=== PATIENT | female | born 1950 | race Two or more races ===

== ENCOUNTER 2018-01-25 01:16 | Emergency (ER) | payer MEDICARE, MEDICAID ==
[~2018-01-25] VITALS: Ht 162.6 cm; Wt 81.6 kg
[2018-01-25 01:23] VITALS: BP 132/80
[2018-01-25] MEDS ORDERED: Pantoprazole Inj IV ONE (01:45)
--- NOTE | 2018-01-25 02:07 | Emergency Room Report ---
History of Present Illness General Chief Complaint: Abdominal Pain Source: Patient, Family Member Present Illness HPI Is a 67-year-old female presents with abdominal pain. Onset tonight. she had multiple episode and pain. She had a syncopal episode hitting her head in the bathroom during vomiting. Her daughter she was diagnosed with gastritis and his been ongoing for several months now. This is the fourth ER visit. Last 3 times she went to [facility]. She had last ER visit 2 weeks ago. A week ago she had endoscopy was told she has gastritis. She unable to tolerate the medicine the day prescribed. Patient complaining of upper abdominal pain. Pain is sharp in nature. Radiating to her chest. Is nauseous. No vomiting. No diarrhea. Similar symptoms in the past. Pain is 8 out of 10. Allergies: Coded Allergies: No Known Allergies (Unverified , 01/25/18) Patient History Past Medical History: see triage record, old chart reviewed Past Surgical History: other Pertinent Family History: none Social History: Denies: smoking Last Menstrual Period: n/a Now: No Immunizations: other Reviewed Nursing Documentation: PMH: Agreed; PSxH: Agreed Nursing Documentation-PMH Past Medical History: No History, Except For Hx Gastrointestinal Problems: Yes - Gastrittis Review of Systems Eye: Denies: eye pain, blurred vision ENT: Denies: ear pain, nose congestion, throat swelling Respiratory: Denies: cough, shortness of breath Cardiovascular: Denies: chest pain, palpitations Gastrointestinal: Reports: abdominal pain, nausea; Denies: diarrhea, vomiting Musculoskeletal: Denies: back pain, joint pain Skin: Denies: rash Neurological: Denies: headache, numbness Endocrine: Denies: increased thirst, increased urine Hematologic/Lymphatic: Denies: easy bruising All Other Systems: negative except mentioned in HPI Physical Exam Vital Signs Date Time Temp Pulse Resp B/P (MAP) Pulse Ox O2 Delivery O2 Flow Rate FiO2 01/25/18 01:17 97.7 90 18 132/80 98 Room Air 97.7 vitals normal Sp02 EP Interpretation: reviewed, normal General Appearance: well appearing, no apparent distress, alert Head: normocephalic, atraumatic Eyes: bilateral eye PERRL, bilateral eye EOMI ENT: hearing grossly normal, normal pharynx Neck: full range of motion, supple, no meningismus Respiratory: chest non-tender, lungs clear, normal breath sounds Cardiovascular #1: regular rate, rhythm, no murmur Gastrointestinal: normal bowel sounds, non tender, no mass, no organomegaly, no bruit, non-distended Musculoskeletal: back normal, gait/station normal, normal range of motion Psychiatric: anxious Skin: warm/dry Procedures Critical Care Time Critical Care Time Critical care is mandated in this patient who presented with subarachnoid hemorrhage. Patient require my urgent intervention to attenuate the risks of metabolic collapse which may lead to cardiovascular collapse and . Critical care time is 35 minutes excluding any reportable procedure. Critical care time included evaluation, multiple reevaluation, looking at old charts, interpreting laboratory and diagnostic data, discussing case with patient and family and consultants, and charting. Medical Decision Making Diagnostic Impression: Primary Impression: Subarachnoid hemorrhage Additional Impressions: Syncope and collapse Abdominal pain Qualified Codes: R10.84 - Generalized abdominal pain Hypokalemia ER Course Patient presents with abdominal pain and vomiting. Chest persistent vomiting requiring several doses of antiemetics here. Her daughter did mention that she fell and hit her head. I did a CT scan it showed diffuse subarachnoid hemorrhage. I suspect that she has aneurysmal bleed to cause her to have syncope and persistent vomiting. I see no external trauma to indicate trauma causing the subarachnoid bleed. I discussed the case with FABIOLA Chavez, at [facility]. She accepted patient for higher level care. Were unable to get ACLS transfer to [place] and a timely manner within an hour. Because of this, I will send patient via 911. Patient will probably need a surgical intervention. Laboratory Tests Test 01/25/18 00:45 01/25/18 02:07 01/25/18 02:18 01/25/18 02:50 Sodium Level 140 MMOL/L (136-145) Potassium Level 2.8 MMOL/L (3.5-5.1) L Chloride Level 103 MMOL/L (98-107) Carbon Dioxide Level 25 MMOL/L (21-32) Anion Gap 12 mmol/L (5-15) Blood Urea Nitrogen 14 mg/dL (7-18) Creatinine 0.8 MG/DL (0.55-1.30) Estimat Glomerular Filtration Rate > 60 mL/min (>60) Glucose Level 147 MG/DL (74-106) H Calcium Level 9.0 MG/DL (8.5-10.1) Total Bilirubin 0.5 MG/DL (0.2-1.0) Aspartate Amino Transf (AST/SGOT) 31 U/L (15-37) Alanine Aminotransferase (ALT/SGPT) 27 U/L (12-78) Alkaline Phosphatase 112 U/L (46-116) Total Protein 7.9 G/DL (6.4-8.2) Albumin 3.5 G/DL (3.4-5.0) Globulin 4.4 g/dL Albumin/Globulin Ratio 0.8 (1.0-2.7) L Lipase 101 U/L (73-393) Troponin I 0.000 ng/mL (0.000-0.056) Urine Color Pale yellow Urine Appearance Clear Urine pH 6.5 (4.5-8.0) Urine Specific [place] 1.010 (1.005-1.035) Urine Protein Negative (NEGATIVE) Urine Glucose (UA) Negative (NEGATIVE) Urine Ketones Negative (NEGATIVE) Urine Occult Blood Negative (NEGATIVE) Urine Nitrite Negative (NEGATIVE) Urine Bilirubin Negative (NEGATIVE) Urine Urobilinogen Normal MG/DL (0.0-1.0) Urine Leukocyte Esterase Negative (NEGATIVE) White Blood Count 8.3 K/UL (4.8-10.8) Red Blood Count 4.60 M/UL (4.20-5.40) Hemoglobin 10.2 G/DL (12.0-16.0) L Hematocrit 32.8 % (37.0-47.0) L Mean Corpuscular Volume 71 FL (80-99) L Mean Corpuscular Hemoglobin 22.2 PG (27.0-31.0) L Mean Corpuscular Hemoglobin Concent 31.1 G/DL (32.0-36.0) L Red Cell Distribution Width 14.7 % (11.6-14.8) Platelet Count 181 K/UL (150-450) Mean Platelet Volume 9.7 FL (6.5-10.1) Neutrophils (%) (Auto) 70.7 % (45.0-75.0) Lymphocytes (%) (Auto) 22.2 % (20.0-45.0) Monocytes (%) (Auto) 5.4 % (1.0-10.0) Eosinophils (%) (Auto) 0.8 % (0.0-3.0) Basophils (%) (Auto) 0.9 % (0.0-2.0) Lab Results Impression labs with hypo-kalemia EKG Diagnostic Results Rate: normal Rhythm: NSR ST Segments: no acute changes Rhythm Strip Diag. Results Rhythm Strip Time: 04:20 EP Interpretation: yes Rate: 74 Rhythm: NSR, no PVC's, no ectopy CT/MRI/US Diagnostic Results CT/MRI/US Diagnostic Results #1: Imaging Test Ordered: CT head Impression read by radiologist. diffuse subarachnoid hemorrhage CT/MRI/US Diagnostic Results #2: Imaging Test Ordered: CT abdomen and pelvis Impression Read by radiologist. Hemangioma of the left lower lobe. No obstruction. Appendix normal. Last Vital Signs Date Time Temp Pulse Resp B/P (MAP) Pulse Ox O2 Delivery O2 Flow Rate FiO2 01/25/18 01:23 97.7 18 132/80 98 Room Air 97.7 01/25/18 01:17 90 Status: improved Disposition: XFER SHT-TRM HOSP Condition: Critical Referrals: GOOD GERONIMO GOMEZ (PCP) NBA CAMARGO M.D. January 25, 2018 02:07
[2018-01-25 02:24] LABS: ANION GAP 12 mmol/L (5-15); BLOOD UREA NITROGEN 14 mg/dL (7-18); CARBON DIOXIDE 25 MMOL/L (21-32); CHLORIDE 103 MMOL/L (98-107); CREATININE 0.8 MG/DL (0.55-1.30); POTASSIUM 2.8 MMOL/L (3.5-5.1); SODIUM 140 MMOL/L (136-145)
[2018-01-25 02:26] LABS: ALANINE AMINOTRANSFERASE 27 U/L (12-78); ALBUMIN 3.5 G/DL (3.4-5.0); ALBUMIN/GLOBULIN RATIO 0.8 (1.0-2.7); ALKALINE PHOSPHATASE 112 U/L (46-116); ASPARTATE AMINO TRANSFERASE 31 U/L (15-37); BILIRUBIN,TOTAL 0.5 MG/DL (0.2-1.0)
[2018-01-25 02:31] LABS: APPEARANCE,URINE CLEAR; BILIRUBIN, URINE NEGATIVE (NEGATIVE); COLOR,URINE PALE YELLOW; GLUCOSE, URINE (UA) NEGATIVE (NEGATIVE); KETONES,URINE NEGATIVE (NEGATIVE); LEUKOCYTE ESTERASE ,URINE NEGATIVE (NEGATIVE); NITRITE,URINE NEGATIVE (NEGATIVE); PH,URINE 6.5 (4.5-8.0); UROBILINOGEN,URINE NORMAL MG/DL (0.0-1.0)
[2018-01-25 02:32] LABS: PROTEIN,URINE NEGATIVE (NEGATIVE)
[2018-01-25 02:38] VITALS: BP 143/76
[2018-01-25 02:41] LABS: BASOPHILS % (AUTO) 0.9 % (0.0-2.0); EOSINOPHILS % (AUTO) 0.8 % (0.0-3.0); HEMATOCRIT 32.8 % (37.0-47.0); HEMOGLOBIN 10.2 G/DL (12.0-16.0); LYMPHOCYTES % (AUTO) 22.2 % (20.0-45.0); MEAN CORPUSCULAR VOLUME 71 FL (80-99); MONOCYTES % (AUTO) 5.4 % (1.0-10.0); NEUTROPHILS % (AUTO) 70.7 % (45.0-75.0); PLATELET COUNT 181 K/UL (150-450); RED CELL DISTRIBUTION WIDTH 14.7 % (11.6-14.8); WHITE BLOOD COUNT 8.3 K/UL (4.8-10.8)
[2018-01-25] MEDS ORDERED: LORazepam Inj 2mg/ml 1ml IV ONE (02:45)
[2018-01-25] MEDS ORDERED: levETIRAcetam 1,000mg/NS100ml 100 ML IVPB ONE (04:15)
[2018-01-25 04:31] VITALS: BP 107/68
--- NOTE | 2018-01-25 09:55 | Diagnostic Imaging Report ---
Indication: Abdominal pain for 4 days Technique: Spiral acquisitions obtained through the abdomen and pelvis. No oral contrast utilized, per emergency room physician request No IV contrast utilized, per referring physician request.. Multiplanar reconstructions were generated. Total dose length product 1119.7 mGycm. CTDIvol(s) 19.95 mGy. Dose reduction achieved using automated exposure control Comparison: None Findings: There is some image degradation due to motion artifact. No evidence of diverticulosis or diverticulitis. The appendix is normal. No small bowel distention. There is a small umbilical hernia which contains only fat. No free or loculated intraperitoneal air or fluid is evident. The distal esophagus, stomach, duodenum are unremarkable.. Small gallstones are present. Lack of IV contrast limits assessment of the solid organs. The liver, bile ducts are unremarkable. The pancreas is atrophic and fatty replaced. The spleen, adrenals, kidneys are unremarkable. No renal or ureteral calculi, hydronephrosis, or hydroureter. The bladder is unremarkable. The uterus demonstrates calcifications, likely on the basis of old fibroids. No adnexal mass. No pelvic mass or adenopathy. No retroperitoneal or mesenteric mass or adenopathy. Lung bases demonstrate a calcified nodule on the left. This questionably demonstrates some soft tissue as well. There are atelectatic changes as well as interstitial septal thickening and groundglass opacities. The bones demonstrate degenerative spondylosis changes. Impression: No acute abdominal or pelvic abnormality Mild pulmonary interstitial septal thickening and groundglass opacity, may indicate mild congestive heart failure Cholelithiasis Calcified granuloma versus hamartoma at the left lung base Other findings as noted, including degenerative spondylosis, calcified old uterine fibroids This agrees with the preliminary interpretation provided overnight by [facility] teleradiology service. The CT scanner at [facility] is accredited by the [employer] and the scans are performed using protocols designed to limit radiation exposure to as low as reasonably achievable to attain images of sufficient resolution adequate for diagnostic evaluation.
--- NOTE | 2018-01-25 10:01 | Diagnostic Imaging Report ---
Indications: Headache, dizziness, fell 2 hours ago Technique: Spiral acquisitions obtained through the brain. Angled axial and coronal 5 x 5 mm slices were reconstructed. Total dose length product 1361.98 mGycm. CTDI vol(s) 70.38 mGy. Dose reduction achieved using automated exposure control Comparison: None. Findings: There is extensive subarachnoid hemorrhage, with high attenuation blood occupying the basilar cisterns, the posterior fossa cisterns, extending around the proximal spinal cord, the bilateral sylvian fissures, and the more inferior cerebral sulci. There is also blood seen filling the third ventricle, as well as blood within the lateral and fourth ventricles. There is mild dilatation of the lateral ventricles. No evidence of subdural or intraparenchymal bleed demonstrated. Stanford-white differentiation is normal. The calvarium is intact. There is no significant soft tissue swelling. The sinuses are clear. There is evidence of prior bilateral cataract surgery. Impression: Evidence of considerable subarachnoid and intraventricular hemorrhage, as described. More likely on the basis of aneurysmal bleed than trauma. Consider CTA for further evaluation Mild lateral ventriculomegaly, could be on the basis of age-related changes, developing hydrocephalus not excludable No evidence of acute bony trauma This agrees with the preliminary interpretation provided overnight by [employer] teleradiology service, with mild nonsignificant discrepancy The CT scanner at [facility] is accredited by the [employer] and the scans are performed using protocols designed to limit radiation exposure to as low as reasonably achievable to attain images of sufficient resolution adequate for diagnostic evaluation.
--- NOTE | 2018-01-25 10:02 | Diagnostic Imaging Report ---
Indication: Shortness of Technique: One view of the chest Comparison: None Findings: Patient is rotated to the right. The heart is enlarged. There is mild interstitial congestion. The aorta is tortuous and ectatic Impression: Cardiomegaly with mild interstitial congestion
--- NOTE | 2018-01-26 17:04 | Cardiology Report ---
APPROVED REPORT EKG Measurement Heart [id number] Sinus bradycardia with sinus arrhythmia Otherwise normal ECG
== END 2018-01-25 04:35 | disposition short-term general hospital (02) ==
LOC: EDBD 01:16 → EMR 01:36
DX: S06.6X0A Traumatic subarachnoid hemorrhage without loss of consciousness, initial encounter (principal); W19.XXXA Unspecified fall, initial encounter; Y92.9 Unspecified place or not applicable; R55 Syncope and collapse; R10.9 Unspecified abdominal pain; R11.10 Vomiting, unspecified; K80.20 Calculus of gallbladder without cholecystitis without obstruction
CPT/HCPCS: 36415; 70450; 71045; 74176; 80053; 81003; 83690; 84484; 85025; 93005; 96374; 96375; 99285; C9113; J1953; J2405